=== PATIENT | male | born 1995 | race Caucasian/White ===

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

== ENCOUNTER → 2017-05-08 | Outpatient (CLI) | payer BC ==
[2016-11-11 14:40] VITALS: BP 117/80
== END ==
LOC: RAD 15:54
DX: R07.89 Other chest pain (principal)

== ENCOUNTER → 2020-04-30 | Outpatient (CLI) | payer BC ==
[2019-01-02 17:43] VITALS: BP 118/71
[~2020-04-30] MED LIST changes: +DUTASTERIDE0.5 MG PO; +OMEPRAZOLE40 MG PO
== END ==
LOC: RAD 10:14
DX: I10 Essential (primary) hypertension (principal); I77.1 Stricture of artery; G45.3 Amaurosis fugax; R51 Headache; H53.452 Other localized visual field defect, left eye
CPT/HCPCS: A9585

== ENCOUNTER → 2021-06-03 | Outpatient (CLI) | payer BC | LOC: RAD 09:23 | DX: R10.84 Generalized abdominal pain (principal) ==

== ENCOUNTER → 2021-06-03 | Outpatient (REF) | LOC: LAB 09:16 | DX: R10.84 Generalized abdominal pain (principal); R35.0 Frequency of micturition ==